=== PATIENT | female | born 1965 | race African-American/Black ===

== ENCOUNTER 2022-11-12 12:14 | Emergency (ER) | payer MEDICAID ==
[~2022-11-12] VITALS: Ht 162.6 cm; Wt 62.6 kg
[2022-11-12 12:21] VITALS: BP 152/104
--- NOTE | 2022-11-12 12:29 | NUR ---
Patient BIBA to bed 3 at this time.
--- NOTE | 2022-11-12 12:32 | NUR ---
PT AMBULATED WITH STEADY GAIT TO RESTROOM.
--- NOTE | 2022-11-12 12:50 | NUR ---
57F BIBA WITH C/O SZ X1 DAY. PT REPORTS HAVING 3 SEIZURES YESTERDAY AND 2 TODAY. PT STATES SHE HAS SEIZURES AFTER TAKING DRUGS. PT AAOX4 UPON ASSESSMENT, AMBULATES WITH STEADY GAIT, PT DENIES COMPLAINTS OF PAIN, DIZZINESS, N/V/D, FEVERS CHILLS. PT PLACED ON BEDSIDE MONITOR, SIDE RAILS X2, SEIZURE PRECAUTIONS IN PLACE.
--- NOTE | 2022-11-12 13:09 | NUR ---
PATIENT ELOPED FROM FACILITY. DISCHARGE INSTRUCTIONS NOT GIVEN TO PATIENT. DR. ROWE NOTIFIED.
--- NOTE | 2022-11-12 13:09 | NUR ---
LAB ATTEMPTED TO DRAW BLOOD, PT NOT IN ROOM AT THIS TIME. DR. ROWE MADE AWARE.
== END 2022-11-12 13:09 | disposition left against medical advice (07) ==
LOC: MED 12:14
DX: R56.9 Unspecified convulsions (principal)
CPT/HCPCS: 99283